=== PATIENT | male | born 1990 | race Caucasian/White ===

== ENCOUNTER 2017-08-06 22:56 | Emergency (ER) | payer BC ==
[~2017-08-06] VITALS: Ht 180.3 cm; Wt 115.7 kg
--- NOTE | 2017-08-06 23:00 | NUR ---
Placed in room 6 . Placed on [employer] engineer, blood pressure machine and pulse oximeter. To gown for exam. Side rails up. Report received from AFSANEH Lantigua.
[2017-08-06 23:01] VITALS: BP_SYST 160
--- NOTE | 2017-08-06 23:05 | NUR ---
Pt reports having sexual intercourse last night and condom broke while being active. States he later found out sexual partner was a crystal meth user and wanted testing done to check if anything was transmitted. Pt reports he was seen at Urgent care earlier today and had blood drawn and a urine sample taken. Pt was also referred to an infectious Disease specialist; however, number was out of order. Pt here today seeking alternate treatment options. No acute distress noted at this time.
--- NOTE | 2017-08-06 23:10 | NUR ---
ER Dr. Sow at bedside examining patient.
[2017-08-06 23:25] VITALS: BP_SYST 155
--- NOTE | 2017-08-06 23:25 | NUR ---
Patient given written and verbal discharge instructions and verbalizes understanding. ER MD discussed with patient the results and treatment provided. Patient in stable condition. ID arm band removed. Rx of Truvada given.Opportunity for questions provided and answered.
== END 2017-08-06 23:25 | disposition home or self-care (01) ==
LOC: SED 22:56
DX: Z20.89 Contact with and (suspected) exposure to other communicable diseases (principal); I10 Essential (primary) hypertension; Z88.0 Allergy status to penicillin; Z90.89 Acquired absence of other organs
CPT/HCPCS: 99283